=== PATIENT | male | born 1955 | race Caucasian/White ===

== ENCOUNTER 2020-12-23 09:38 | Observation (INO) ==
[2020-12-23] MEDS ORDERED: Ondansetron 4 mg VIAL 2 MG/ML 2 ml VIAL IV ONE (11:19)
[2020-12-23] MEDS ORDERED: Morphine 4 MG/ML VIAL (1 ml) IV ONE (11:19)
[2020-12-23 11:34] LABS: ABS Basophils 0.1 10^3/ul (0-0.2); ABS Lymphocytes 0.8 10^3/ul (1.0-4.8); ABS Monocytes 1.4 10^3/ul (0-0.8); ABS Neutrophils 12.5 10^3/ul (1.5-7.7); Hematocrit 45 % (42-52); Hemoglobin 15.4 g/dL (14.0-18.0); Lymphocyte % 5.7 %; Mean Corpuscular HGB Conc 34 g/dL (31-36); Mean Corpuscular Hemoglobin 32 pg (27-31); Mean Corpuscular Volume 93 fL (80-94); Mean Platelet Volume 7.2 fL (7.4-10.4); Platelet Count 254 10^3/uL (150-450); Red Blood Count 4.84 10^6 /uL (4.18-5.48); Red Cell Distribution Width 14 % (10-15); White Blood Count 14.8 10^3/uL (3.5-10.8)
[2020-12-23] MEDS: Lactated Ringers 1000 ml BAG 1,000 ML IV SCH ×2 (11:38→12:53)
[2020-12-23 11:42] LABS: Activated Partial Thrombo Time 31.2 seconds (26.0-38.0); INR 1.2 (0.86-1.15)
[2020-12-23 11:53] LABS: Albumin 4.4 g/dL (3.2-5.2); Albumin/Globulin Ratio 1.4 (1-3); C Reactive Protein 1.73 mg/L (<8.01); Calcium 9.8 mg/dL (8.6-10.3); Globulin 3.2 g/dL (2-4); Potassium 3.8 mmol/L (3.5-5.0); Total Bilirubin 1.5 mg/dL (0.2-1.0); Total Protein 7.6 g/dL (6.4-8.9)
[2020-12-23] MEDS ORDERED: HYDROmorphone 1 MG/1 ML SYRINGE IV SLOW PU ONE ×2 (12:26→15:45)
[2020-12-23] MEDS ORDERED: cefTRIAXone 2 GM ADDV.VIAL 2 GM in NS 0.9% 100 ml BAG 100 ML IVPB ONE (14:04)
[2020-12-23] MEDS ORDERED: NS 0.9% 1000 ml BAG 1,000 ML IV ONE (14:08)
[2020-12-23] MEDS ORDERED: Ondansetron ODT 4 mg TAB 4 MG TAB SL ONE (14:58)
[2020-12-23] MEDS ORDERED: Lactated Ringers 1000 ml BAG 1,000 ML IV SCH (15:00)
[2020-12-23 15:22] LABS: Urine Appearance Clear; Urine Bilirubin Negative (Negative); Urine Blood 2+ (Negative); Urine Color Yellow; Urine Glucose Negative (Negative); Urine Ketones Trace (Negative); Urine Nitrite Negative (Negative); Urine Protein Negative (Negative); Urine Urobilinogen Negative (Negative)
[2020-12-23 15:23] LABS: Urine Bacteria Absent (Absent); Urine Red Blood Cell 3+(>10/hpf) (Absent); Urine White Blood Cell Trace(0-5/hpf) (Absent)
[2020-12-23 15:34] LABS: Rapid COVID-19 Molecular Undetected (Undetected)
[2020-12-23] MEDS ORDERED: Ondansetron 4 mg VIAL 2 MG/ML 2 ml VIAL IV PRN (16:44)
[2020-12-23] MEDS ORDERED: hydrALAZINE 20 mg/ml 1 ML Vial IV IV SLOW PU PRN (17:28)
[2020-12-23] MEDS: Heparin 5000 UNITS/ML 1 mL VIAL SUBCUT SCH (21:20)
[2020-12-23] MEDS: NS 0.9% 1000 ml BAG 1,000 ML IV SCH (22:03)
[2020-12-24] MEDS: Heparin 5000 UNITS/ML 1 mL VIAL SUBCUT SCH ×2 (08:14→19:50)
[2020-12-24] MEDS: NS 0.9% 1000 ml BAG 1,000 ML IV SCH (08:15)
[2020-12-24] MEDS: MAGNESIUM CITRATE 100 MG PO SCH (08:21)
[2020-12-24 08:31] LABS: ABS Eosinophils 0.1 10^3/ul (0-0.6); ABS Lymphocytes 1.6 10^3/ul (1.0-4.8); ABS Monocytes 0.9 10^3/ul (0-0.8); ABS Neutrophils 5.6 10^3/ul (1.5-7.7); Eosinophil % 1.4 %; Hematocrit 39 % (42-52); Hemoglobin 13.2 g/dL (14.0-18.0); Lymphocyte % 19.3 %; Mean Corpuscular HGB Conc 34 g/dL (31-36); Mean Corpuscular Hemoglobin 32 pg (27-31); Mean Corpuscular Volume 93 fL (80-94); Mean Platelet Volume 7.5 fL (7.4-10.4); Nucleated Red Blood Cells % 0.1; Platelet Count 211 10^3/uL (150-450); Red Blood Count 4.14 10^6 /uL (4.18-5.48); Red Cell Distribution Width 14 % (10-15); White Blood Count 8.3 10^3/uL (3.5-10.8)
[2020-12-24 08:54] LABS: Calcium 8.7 mg/dL (8.6-10.3); Potassium 3.9 mmol/L (3.5-5.0)
[2020-12-24] MEDS ORDERED: D5LR 1000 ml BAG 1,000 ML IV SCH (12:00)
[2020-12-24] MEDS ORDERED: D5NS 0.9% 1000 ml BAG 1,000 ML IV SCH (12:00)
[2020-12-24] MEDS: HYDROmorphone 1 MG/1 ML SYRINGE IV SLOW PU PRN ×2 (12:32→17:33)
[2020-12-24] MEDS ORDERED: HYDROmorphone 1 MG/1 ML SYRINGE IV ONE (13:47)
[2020-12-24] MEDS ORDERED: cefTRIAXone 2 GM ADDV.VIAL 2 GM in NS 0.9% 100 ml BAG 100 ML IV ONE (14:30)
[2020-12-25] MEDS: D5NS 0.9% 1000 ml BAG 1,000 ML IV SCH ×2 (00:43→08:08)
[2020-12-25] MEDS: HYDROmorphone 1 MG/1 ML SYRINGE IV SLOW PU PRN (08:03)
[2020-12-25 08:26] LABS: Calcium 8.9 mg/dL (8.6-10.3); Potassium 3.4 mmol/L (3.5-5.0)
[2020-12-25] MEDS ORDERED: Midazolam 2 mg/2 ml VIAL 1 mg/ml 2 ml VIAL (2 mg) ONE (08:43)
[2020-12-25] MEDS ORDERED: Rocuronium 50 mg VIAL 10 mg/ml 5 ml VIAL (50 mg) ONE (08:43)
[2020-12-25] MEDS ORDERED: fentaNYL 100 mcg/2 ml 50 MCG/ML VIAL ONE ×3 (08:43→10:06)
[2020-12-25] MEDS ORDERED: Propofol 10 MG/ML 20 ML BTL ONE (08:44)
[2020-12-25] MEDS ORDERED: Iohexol 180 (CONTRAST) 20 ML SDV IV ONE (09:00)
[2020-12-25] MEDS ORDERED: HYDROmorphone 1 MG/1 ML SYRINGE IV PRN (09:30)
[2020-12-25] MEDS ORDERED: Ondansetron 4 mg VIAL 2 MG/ML 2 ml VIAL ONE (09:30)
[2020-12-25] MEDS ORDERED: fentaNYL 100 mcg/2 ml 50 MCG/ML VIAL IV PRN (09:30)
[2020-12-25] MEDS ORDERED: Naloxone 0.4 mg VIAL 0.4 mg/ml 1 ml VIAL IV PRN (09:30)
[2020-12-25] MEDS ORDERED: Ondansetron 4 mg VIAL 2 MG/ML 2 ml VIAL IV PRN (09:30)
[2020-12-25] MEDS ORDERED: Gentamicin ADULT 40 MG/ML VIAL (2 ML VIAL = 80 MG) ONE (09:39)
[2020-12-25] MEDS: Heparin 5000 UNITS/ML 1 mL VIAL SUBCUT SCH (12:43)
[2020-12-25] MEDS: MAGNESIUM CITRATE 100 MG PO SCH (12:43)
[2020-12-25 13:21] VITALS: BP 149/74
== END 2020-12-25 15:36 | disposition home or self-care (01) ==
LOC: EDHOLD 09:38 → ED 09:38 → SUATTDRO 16:44 → MEDTELE 20:49
PROVIDERS: ADMIT Internal Medicine; ATTEND Internal Medicine